=== PATIENT | female | born 1970 | race Caucasian/White ===

== ENCOUNTER 2024-11-14 08:30 | Outpatient (RCR) | payer BC, SELFPAY ==
[2024-10-17 13:12] VITALS: BP 125/67; PULSE 70; RESP 16; TEMP 36.5; O2SAT 100
[2024-10-17] MEDS: METHYLPREDNISOLONE SOD SUCC 1,000 MG in 0.9 % SODIUM CHLORIDE 100 ml 100 ML 116 MG IVPB (13:32)
[2024-10-17] MEDS: 0.9 % SODIUM CHLORIDE 500 ML IV (14:43)
[2024-10-17] MEDS: SODIUM CHLORIDE 0.9 % (FLUSH) 10 ML SYRINGE IVF (14:43)
[2024-10-18 13:00] VITALS: BP 116/76; PULSE 78; RESP 16; TEMP 36.3; O2SAT 99
[2024-10-18] MEDS: METHYLPREDNISOLONE SOD SUCC 1,000 MG in 0.9 % SODIUM CHLORIDE 100 ml 100 ML 116 MG IVPB (13:35)
[2024-10-19 13:04] VITALS: BP 123/81; PULSE 83; RESP 16; TEMP 36.2; O2SAT 96
[2024-10-19] MEDS: METHYLPREDNISOLONE SOD SUCC 1,000 MG in 0.9 % SODIUM CHLORIDE 100 ml 100 ML 116 MG IVPB (13:14)
[2024-11-14 08:40] VITALS: BP 108/71; PULSE 98; RESP 16; TEMP 36.3; O2SAT 98
[2024-11-14] MEDS: METHYLPREDNISOLONE SOD SUCC 1,000 MG in 0.9 % SODIUM CHLORIDE 100 ml 100 ML 116 MG IVPB (09:44)
== END 2025-04-15 23:59 | disposition home or self-care (01) ==
LOC: CCIC 08:30
PROVIDERS: PCP Family Medicine; Referring Provider Family Medicine; Visit Provider Clinical Nurse Specialist
DX: G35 Multiple sclerosis (principal); G37.9 Demyelinating disease of central nervous system, unspecified; E55.9 Vitamin D deficiency, unspecified
CPT/HCPCS: 96365; G0463; J2919; J7030